=== PATIENT | female | born 1990 | race Caucasian/White ===

== ENCOUNTER → 2016-05-21 | Outpatient (CLI) | payer BC ==
[~2016-05-21] MED LIST: VALA1TAB PO
== END | disposition home or self-care (01) ==
LOC: C.LAB1850 07:25
PROVIDERS: ATTEND Obstetrics & Gynecology
DX: O20.0 Threatened abortion (principal)

== ENCOUNTER → 2016-05-28 | Outpatient (CLI) | payer BC | END | disposition home or self-care (01) | LOC: C.LAB 16:14 | PROVIDERS: ATTEND Obstetrics & Gynecology | DX: O03.4 Incomplete spontaneous abortion without complication (principal); Z3A.00 Weeks of gestation of pregnancy not specified ==

== ENCOUNTER → 2016-06-12 | Outpatient (CLI) | payer BC | END | disposition home or self-care (01) | LOC: C.LAB 07:44 | PROVIDERS: ATTEND Obstetrics & Gynecology | DX: O03.4 Incomplete spontaneous abortion without complication (principal) ==

== ENCOUNTER → 2016-09-13 | Outpatient (CLI) | payer BC ==
[2016-09-13 09:49] LABS: HEMATOCRIT 40.3 % (37-47); MEAN CELL VOLUME 90.4 fL (80-100); MEAN CORPUSCULAR HEMOGLOBIN 28.9 pg (25-34); MEAN PLATELET VOLUME 9.8 fL (7.4-10.4); PLATELET COUNT 348 K/uL (130-400); RED BLOOD COUNT 4.46 M/uL (4.2-5.4); WHITE BLOOD COUNT 6.68 K/uL (4.8-10.8)
[2016-09-13 10:00] LABS: ALT/SGPT 23 U/L (12-78); BLOOD UREA NITROGEN 10 mg/dl (7-18); BUN/CREATININE RATIO 12.5 (10-20); CARBON DIOXIDE 28 mmol/L (21-32); CHLORIDE 107 mmol/L (98-107); CHOLESTEROL 171 mg/dl (0-200); GLUCOSE 85 mg/dl (70-99); POTASSIUM 3.9 mmol/L (3.5-5.1); SODIUM 141 mmol/L (136-145); TRIGLYCERIDES 124 mg/dl (0-150); VERY LOW DENSITY LIPOPROT CALC 25 mg/dl
[2016-09-13 10:03] LABS: ALB/GLOB RATIO 1.3 (0.9-2); ALKALINE PHOSPHATASE 49 U/L (45-117); AST/SGOT 14 U/L (15-37); HDL CHOLESTEROL 57 mg/dl; LDL CHOLESTEROL CALCULATED 89 mg/dl
[2016-09-13 10:05] LABS: CALCIUM 9.4 mg/dl (8.5-10.1)
== END | disposition home or self-care (01) ==
LOC: C.LAB1850 08:20
PROVIDERS: ATTEND Internal Medicine
DX: Z00.00 Encounter for general adult medical examination without abnormal findings (principal); Z86.2 Personal history of diseases of the blood and blood-forming organs and certain disorders involving the immune mechanism

== ENCOUNTER → 2016-11-05 | Outpatient (CLI) | payer BC ==
[2016-11-05 14:45] LABS: BASO % 0.3 %; BASO ABS # 0.03 K/uL (0-0.2); COMPLETE YES; EOS % 0.8 %; HEMATOCRIT 37.8 % (37-47); IG% 0.3 %; LYMPH % 18.6 %; LYMPH ABS # 1.63 K/uL (1.2-3.4); MEAN CELL VOLUME 89.4 fL (80-100); MEAN CORPUSCULAR HEMOGLOBIN 29.1 pg (25-34); MEAN CORPUSCULAR HGB CONC 32.5 g/dl (32-36); MEAN PLATELET VOLUME 9.5 fL (7.4-10.4); MONO % 6.8 %; NEUT % 73.2 %; PLATELET COUNT 443 K/uL (130-400); RED BLOOD COUNT 4.23 M/uL (4.2-5.4); WHITE BLOOD COUNT 8.76 K/uL (4.8-10.8)
[2016-11-05 16:34] LABS: URINE APPEARANCE CLEAR (CLEAR); URINE BILIRUBIN NEG (NEG); URINE COLOR YELLOW; URINE EPITHELIAL CELL AUTO >30 /lpf (0-5); URINE NITRITE NEG (NEG); URINE PH 7.5 (4.5-7.5); URINE SPECIFIC GRAVITY 1.016 (1.000-1.030); UROBILINOGEN NEG (NEG)
[2016-11-05 16:36] LABS: MANUAL MICROSCOPIC REQUIRED? NO; REVIEW REQ? NO
[2016-11-08 02:41] LABS: CHLAMYDIA TRACH RNA*** NOT DETECTED (NOT DETECTED); GC (NEIS GONORRHOEAE)RNA** NOT DETECTED (NOT DETECTED)
== END | disposition home or self-care (01) ==
LOC: C.LAB1850 12:38
PROVIDERS: ATTEND Obstetrics & Gynecology
DX: Z36 Encounter for antenatal screening of mother (principal); O09.299 Supervision of pregnancy with other poor reproductive or obstetric history, unspecified trimester; Z3A.00 Weeks of gestation of pregnancy not specified

== ENCOUNTER → 2016-12-24 | Outpatient (CLI) | payer BC ==
[2016-12-24 19:30] LABS: GTGD 50 Grams
== END | disposition home or self-care (01) ==
LOC: C.LAB1850 12:33
PROVIDERS: ATTEND Obstetrics & Gynecology
DX: Z34.82 Encounter for supervision of other normal pregnancy, second trimester (principal)

== ENCOUNTER → 2017-03-12 | Outpatient (CLI) | payer BC ==
[2017-03-12 14:50] LABS: HEMATOCRIT 33.7 % (37-47)
[2017-03-12 15:24] LABS: GTGD 50 Grams
[2017-03-12 16:22] LABS: MANUAL MICROSCOPIC REQUIRED? NO; REVIEW REQ? YES; URINE APPEARANCE CLEAR (CLEAR); URINE BILIRUBIN NEG (NEG); URINE COLOR YELLOW; URINE EPITHELIAL CELL AUTO >30 /lpf (0-5); URINE NITRITE NEG (NEG); URINE PH 6.5 (4.5-7.5); UROBILINOGEN NEG (NEG)
== END | disposition home or self-care (01) ==
LOC: C.LAB1850 13:50
PROVIDERS: ATTEND Obstetrics & Gynecology
DX: Z34.00 Encounter for supervision of normal first pregnancy, unspecified trimester (principal)

== ENCOUNTER → 2017-03-27 | Outpatient (CLI) | payer BC ==
[2017-04-02 03:41] LABS: CYTOMEGALOVIRUS IGG AB <0.60 U/ML
== END | disposition home or self-care (01) ==
LOC: C.LAB1850 12:02
PROVIDERS: ATTEND Obstetrics & Gynecology
DX: Z34.03 Encounter for supervision of normal first pregnancy, third trimester (principal); Z20.828 Contact with and (suspected) exposure to other viral communicable diseases; Z3A.00 Weeks of gestation of pregnancy not specified

== ENCOUNTER → 2017-04-25 | Outpatient (CLI) | payer BC | END | disposition home or self-care (01) | LOC: C.LAB1850 13:28 | PROVIDERS: ATTEND Obstetrics & Gynecology | DX: Z20.828 Contact with and (suspected) exposure to other viral communicable diseases (principal) ==

== ENCOUNTER → 2017-05-09 | Outpatient (CLI) | payer BC | END | disposition home or self-care (01) | LOC: C.LABSPEC 14:37 | PROVIDERS: ATTEND Obstetrics & Gynecology | DX: Z34.03 Encounter for supervision of normal first pregnancy, third trimester (principal) ==

== ENCOUNTER 2017-06-06 02:59 | Inpatient (IN) | payer BC, OTHER ==
[~2017-06-06] VITALS: Ht 162.6 cm; Wt 108.9 kg
[2017-06-13] MEDS ORDERED: LACTATED RINGER'S 1000ML 1,000 ML IV PRN (07:43)
[2017-06-13] MEDS ORDERED: LACTATED RINGER'S 1000ML 500 ML IV PRN ×2 (07:43→13:22)
[2017-06-13] MEDS ORDERED: OXYTOCIN 30 UNITS/500ML NSS IV PRN (07:45)
[2017-06-13 08:19] LABS: HEMATOCRIT 35.8 % (37-47); HEMOGLOBIN 12.2 g/dL (12.0-16.0); MEAN CELL VOLUME 90.4 fL (80-100); MEAN CORPUSCULAR HEMOGLOBIN 30.8 pg (25-34); MEAN CORPUSCULAR HGB CONC 34.1 g/dl (32-36); MEAN PLATELET VOLUME 9.9 fL (7.4-10.4); PLATELET COUNT 280 K/uL (130-400); RED CELL DISTRIBUTION WIDTH CV 13.7 % (11.5-14.5); WHITE BLOOD COUNT 12.54 K/uL (4.8-10.8)
[2017-06-13] MEDS: LACTATED RINGER'S 1000ML 1,000 ML IV SCH ×3 (08:19→16:38)
[2017-06-13] MEDS ORDERED: RANI150T3 PO (08:48)
[2017-06-13] MEDS ORDERED: PRENTAB26 PO (08:48)
[2017-06-13] MEDS ORDERED: DOCU-94 PO (08:48)
[2017-06-13 08:52] VITALS: Ht 162.6 cm; Wt 108.9 kg
[2017-06-13] MEDS ORDERED: BUPIVACAINE 0.25% 30 ML VIAL ONE (12:05)
[2017-06-13] MEDS ORDERED: EpHEDrine SULFATE INJ 50 MG/ML AMP ONE (12:05)
[2017-06-13] MEDS ORDERED: FENTANYL 2MCG/ML ROPIV 1.25MG/ML 100ML BAG EPI ONE (12:07)
[2017-06-13] MEDS ORDERED: FENTANYL CITRATE INJ 50 MCG/1 ML 2 ML VIAL ONE ×2 (12:07→21:54)
[2017-06-13] MEDS ORDERED: NALOXONE HCL INJ 1 MG in SODIUM CHLORIDE 0.9% 1000ML 1,000 ML IV PRN (13:22)
[2017-06-13] MEDS ORDERED: ONDANSETRON INJ 2 MG/ML 2 ML VIAL IV PRN ×2 (13:30→21:15)
[2017-06-13] MEDS ORDERED: NALOXONE HCL INJ 0.4 MG/1 ML VIAL/CARP IV PRN (13:30)
[2017-06-13] MEDS ORDERED: DiphenhydrAMINE HCL 50 MG/ML VIAL IV PRN (13:30)
[2017-06-13] MEDS ORDERED: EpHEDrine SULFATE INJ 50 MG/ML AMP IV PRN ×2 (13:30→21:15)
[2017-06-13] MEDS ORDERED: FENTANYL 2MCG/ML ROPIV 1.25MG/ML 100ML BAG EPI PRN (13:30)
[2017-06-13] MEDS ORDERED: NALBUPHINE HCL INJ 10 MG/ML AMP IV PRN (13:30)
--- NOTE | 2017-06-13 19:52 | HISTORY & PHYSICAL EXAMINATION ---
DATE OF ADMISSION: 06/13/2017 HISTORY OF PRESENT ILLNESS: Evy is 41 weeks and she was induced on 06/13/2017. This was for postdates. She was 3 cm. Pitocin was started. As well as she was group B strep negative thus did not require antibiotics. She did proceed to have artificial rupture of membranes and then an epidural. She did reach 5 cm and then labor has stopped at 5 cm for over 3-1/2 hours. An IUPC has been placed and contractions are excellent with monitored video units ranging from 220-300/10 minute. HISTORY: Uncomplicated, this is her first baby. PAST MEDICAL HISTORY: She is healthy. PAST SURGICAL HISTORY: No major surgeries. SOCIAL HISTORY: She is a nonsmoker, nondrinker, . FAMILY HISTORY: Noncontributory. REVIEW OF SYSTEMS: Negative. PHYSICAL EXAMINATION: VITAL SIGNS: Stable. She is afebrile. CHEST: Clear. CARDIOVASCULAR: Normal rate and rhythm. No audible murmur. ABDOMEN: Gravid. heart rate tones category 1. CERVIX: A 5 cm. Some molding palpated, -1 station. IMPRESSION AND PLAN: Discussed with the patient if no progress is made in the next hour, we would recommend section. Discussed risks including but not limited to the risks of bleeding, infection, injury to bowel, bladder, ureter, vessels, deep vein thrombosis and pulmonary embolus. Discussed somewhat increased infection rates with people having sections in labor with ruptured membranes. Again, we will make this final call in the next hour. CHERYLE
[2017-06-13] MEDS ORDERED: CEFAZOLIN IV 3,000 MG in SYRINGE 0 ML IV SCH (21:00)
[2017-06-13] MEDS ORDERED: CITRIC ACID/SODIUM CITRATE 15 ML UDC PO ONE (21:00)
[2017-06-13] MEDS ORDERED: ONDANSETRON INJ 2 MG/ML 2 ML VIAL ONE (21:06)
[2017-06-13] MEDS ORDERED: OXYTOCIN INJ 10 UNITS/ML VIAL ONE (21:06)
[2017-06-13] MEDS ORDERED: LIDOCAINE/EPINEPHRINE 2% 1:200,000 20 ML SDV ONE (21:06)
[2017-06-13] MEDS ORDERED: FENTANYL CITRATE INJ 50 MCG/1 ML 2 ML VIAL IV PRN (21:15)
[2017-06-13] MEDS ORDERED: ATROPINE SULFATE 0.1 MG/ML 5ML SYR IV PRN (21:15)
[2017-06-13] MEDS ORDERED: KETAMINE HCL INJ 50 MG/ML 10 ML VIAL ONE (21:39)
[2017-06-13] MEDS ORDERED: MoRPHine SULFATE PF 1 MG/ML 10 ML AMP/VIAL ONE (21:54)
[2017-06-13] MEDS ORDERED: LACTATED RINGER'S 1000ML 1,000 ML IV SCH (22:16)
--- NOTE | 2017-06-13 22:19 | [facility] Post Operative Brief Note ---
Immediate Operative Summary Operative Date Jun 13, 2017. Pre-Operative Diagnosis 41 week Failure to progress Post-Operative Diagnosis Same Procedure(s) Performed Primary Section Surgeon Ananya Instrument Specialist Surgeon(s) Ted Cano, medical student Estimated Blood Loss 600ml Findings Consistent with Post-Op Diagnosis Specimens 1. Placenta 2. Cord blood Drains Mcgregor Anesthesia Type L&D Only EPID Exist Complication(s) none Disposition Disposition: L&D
[2017-06-13] MEDS ORDERED: BENZOCAINE 20% AER SPR 82.5 GM CAN EXT PRN (22:30)
[2017-06-13] MEDS ORDERED: LANOLIN OINT EXT PRN (22:30)
[2017-06-13] MEDS ORDERED: HYDROCORTISONE ACETATE 25 MG SUPP PR PRN (22:30)
[2017-06-13] MEDS ORDERED: SUPERCREAM 0.870 % 15GM JAR EXT PRN (22:30)
[2017-06-13] MEDS ORDERED: SENNA 8.6 MG TAB PO PRN (22:30)
[2017-06-13] MEDS ORDERED: PROMETHAZINE HCL INJ 25 MG in SODIUM CHLORIDE 0.9% 50ML 50 ML IV PRN (22:30)
[2017-06-13] MEDS ORDERED: MAGNESIUM HYDROXIDE SUSP 30 ML UDC PO PRN (22:30)
--- NOTE | 2017-06-13 22:36 | Anesthesiology Progress Note ---
Anesthesia Post Op Note Date & Time Jun 13, 2017 at 22:35 Vital Signs Pain Intensity: 0.0 Notes Mental Status: alert / awake / arousable, participated in evaluation Pt Amnestic to Procedure: Yes Nausea / Vomiting: adequately controlled Pain: adequately controlled Airway Patency, RR, SpO2: stable & adequate BP & HR: stable & adequate Hydration State: stable & adequate Anesthetic Complications: no major complications apparent
[2017-06-13] MEDS ORDERED: CONTINUE MEDICATION ONE (22:45)
[2017-06-13] MEDS ORDERED: MEPERIDINE HCL 25 MG/ML CARP IV PRN (22:45)
[2017-06-13] MEDS ORDERED: NO NARCOTICS OR SEDATIVES SCH (22:45)
[2017-06-13] MEDS ORDERED: DC INTRASPINAL MORPHINE PRN (22:45)
[2017-06-13] MEDS ORDERED: MoRPHine SULFATE PF 1 MG/ML 10 ML AMP/VIAL EPI PRN (22:45)
[2017-06-13] MEDS ORDERED: OXYTOCIN INJ 20 UNITS in LACTATED RINGER'S 1000ML 1,000 ML IV SCH (23:00)
[2017-06-13] MEDS: KETOROLAC TROMETHAMINE 30 MG/ML VIAL IV. PRN (23:07)
--- NOTE | 2017-06-13 23:17 | OPERATIVE REPORT ---
DATE OF OPERATION: 06/13/2017 PREOPERATIVE DIAGNOSIS: 41 weeks , failure to progress in labor. POSTOPERATIVE DIAGNOSES: Same. PROCEDURE: Low segment transverse primary section. SURGEON: Robb Casanova MD. TUNNELLER: Ted Cano, medical student. ESTIMATED BLOOD LOSS: 600 mL. FINDINGS: Consistent with postoperative diagnosis. SPECIMENS: Placenta, cord blood and cord gases. DRAINS: Mcgregor catheter. ANESTHETIC: Epidural. COMPLICATIONS: None. DISPOSITION: Labor and delivery. DESCRIPTION OF PROCEDURE: Evy had her epidural increased to allow for section. Mcgregor catheter was placed by nursing and she was prepped and draped in supine position with a leftward tilt. Pickups with teeth were used to check adequacy of anesthesia. Initially it was not adequate, but after waiting approximately 5 minutes and retesting this, the situation improved. Pfannenstiel incision made with scalpel, dissecting down through subcutaneous fat to the fascia in the midline. Curved Mayos were then used to extend the fascia laterally and then the fascia superiorly and inferiorly away from the rectus muscles. Rectus muscle split. Peritoneal cavity entered in a superior location and then peritoneal cavity opening enlarged to allow exposure. Bladder retractor placed and then Metzenbaums used to dissect away the bladder flap. Uterus was then incised with the scalpel and then entry was done bluntly with the dry mill operator's finger and then opening extended in the usual fashion with the dry mill operator's fingers. Gentle flexion of the baby's head and then pressure on the abdomen, we delivered the head. Mouth and then nares were suctioned. There was a loose nuchal cord. Then baby was delivered by gentle traction. The baby was then transferred to pediatrics. The baby did require resuscitation. Note, IV Ancef was given preoperatively. IV Pitocin was started at the time of once the baby was delivered. Placenta was removed. We exteriorized the uterus and ensured all the placental material removed from the uterus and then uterus closed in the usual fashion, a running 0 Monocryl locked and a second reinforcing 0 Monocryl nonlocked. After generous irrigation and suction of the cul-de-sac and bladder flap regions, hemostasis was excellent. Uterus was placed back in the peritoneal cavity and hemostasis remained excellent. We inspected the rectus muscles. There was no active bleeding. Fascia closed with 0 Vicryl, subcutaneous fat irrigated and closed with 3-0 Vicryl, skin closed with 4-0 subcuticular Monocryl and Steri-Strips. Urine was clean at the end of the procedure, sponge and instrument counts correct. I attest to the content of the Intraoperative Record and any orders documented therein. Any exceptions are noted below. MTDD
[2017-06-14] VITALS (17 sets, daily range): BP systolic 113–137; BP diastolic 60–83; PULSE 80–101; TEMP 36.4–36.8; O2SAT 93–100
--- NOTE | 2017-06-14 06:52 | Progress Note ---
Subjective Jun 14, 2017. Subjective conversation w/ patient, physical exam, lab review Ambulation: ambulating normally Passing Gas: No Diet Tolerance: Regular Diet Lochia: Moderate Objective Vital Signs Date Time Temp Pulse Resp B/P (MAP) Pulse Ox O2 Delivery O2 Flow Rate FiO2 06/14/17 06:15 18 94 06/14/17 05:15 16 93 06/14/17 04:15 18 94 06/14/17 04:15 36.7 88 20 113/69 (84) 94 Room Air 06/14/17 03:15 18 94 06/14/17 02:15 36.5 101 20 137/79 (98) 100 Room Air 06/14/17 02:15 20 100 06/14/17 01:15 94 Room Air 06/14/17 01:15 94 06/14/17 01:15 20 93 06/14/17 01:15 36.4 87 20 113/71 (85) 93 Room Air Physical Exam General Appearance: WELL-APPEARING Respiratory/Chest: lungs clear Abdomen: non tender Fundus: Firm Incision Description: Clean, Dry & Intact Extremities: no calf tenderness Laboratory Results Last 24 Hours Test 06/13/17 08:08 06/14/17 06:42 White Blood Count 12.54 K/uL Red Blood Count 3.96 M/uL Hemoglobin 12.2 g/dL Hematocrit 35.8 % Mean Corpuscular Volume 90.4 fL Mean Corpuscular Hemoglobin 30.8 pg Mean Corpuscular Hemoglobin Concent 34.1 g/dl RDW Standard Deviation 45.0 fL RDW Coefficient of Variation 13.7 % Platelet Count 280 K/uL Mean Platelet Volume 9.9 fL Assessment and Plan Post-Op Day#: 0 Continue Routine Care: Patient is doing well minimal bleeding seen as well controlled her baby is in [place] she wishes to go home she is willing to stay today and consider going home tomorrow morning
[2017-06-14 07:56] LABS: BASO % 0.1 %; BASO ABS # 0.01 K/uL (0-0.2); EOS % 0.1 %; EOS ABS # 0.01 K/uL (0-0.5); HEMATOCRIT 30.7 % (37-47); HEMOGLOBIN 10.5 g/dL (12.0-16.0); IG# 0.04 K/uL (0.00-0.02); LYMPH % 9.6 %; MEAN CELL VOLUME 91.1 fL (80-100); MEAN CORPUSCULAR HEMOGLOBIN 31.2 pg (25-34); MEAN CORPUSCULAR HGB CONC 34.2 g/dl (32-36); MEAN PLATELET VOLUME 10.1 fL (7.4-10.4); MONO ABS # 0.75 K/uL (0.11-0.59); NEUT % 83.9 %; NEUT ABS # 10.51 K/uL (1.4-6.5); PLATELET COUNT 207 K/uL (130-400); RED CELL DISTRIBUTION WIDTH CV 13.7 % (11.5-14.5); RED CELL DISTRIBUTION WIDTH SD 45.2 fL (36.4-46.3); WHITE BLOOD COUNT 12.52 K/uL (4.8-10.8)
[2017-06-14] MEDS: SIMETHICONE 80 MG CHEW PO SCH ×4 (08:13→20:07)
[2017-06-14] MEDS: PRENATAL VITAMIN TAB PO SCH (08:13)
[2017-06-14] MEDS: DOCUSATE SODIUM 100 MG CAP PO SCH ×2 (08:13→20:04)
[2017-06-14] MEDS: KETOROLAC TROMETHAMINE 30 MG/ML VIAL IV. PRN ×2 (08:19→14:33)
[2017-06-14] MEDS ORDERED: DiphenhydrAMINE HCL 50 MG/ML VIAL IV PRN (15:45)
[2017-06-14] MEDS ORDERED: MEPERIDINE HCL 50 MG/ML CARP IV PRN ×2 (15:45)
[2017-06-14] MEDS ORDERED: ZOLPIDEM TARTRATE 5 MG TAB PO PRN (15:45)
[2017-06-14] MEDS ORDERED: ONDANSETRON INJ 2 MG/ML 2 ML VIAL IV PRN (15:45)
[2017-06-14] MEDS ORDERED: KETOROLAC TROMETHAMINE 30 MG/ML VIAL IV. PRN (15:45)
[2017-06-14] MEDS: OXYCODONE/ACETAMINOPHEN 5-325 TAB PO PRN ×3 (16:13→23:47)
--- NOTE | 2017-06-14 17:11 | Discharge Instructions ---
Discharge Instructions Date of Service Jun 14, 2017. Admission Reason for Admission: Induction Discharge Discharge Diagnosis / Problem: delivery Discharge Goals Goal(s): Routine recovery after Medications Continue Dispensed Medications: lansinoh Activity Recommendations Activity Limitations: per Instructions/Follow-up section . Instructions / Follow-Up Instructions / Follow-Up ACTIVITY RECOMMENDATIONS: * Gradual return to full activity over the next 2-3 weeks. * No lifting - nothing heavier than baby over the next 2-3 weeks. * Do not engage in vigorous exercise, sexual activity or sports until cleared by your physician. * Do not drive or operate any motorized equipment until cleared by your physician. * You may shower/bathe daily. MEDICATIONS: For discomfort or pain, you may use Acetaminophen (Tylenol), Ibuprofen (Advil), or Naproxen (Aleve) following the package directions. For constipation you may use Colace following the package directions. BREAST CARE: If you are not breast feeding: * Wear a supportive bra 24 hours a day for one to two weeks. * Avoid stimulating your breasts and nipples as much as possible during the first few weeks after delivery. * When taking a shower, have the warm water hit your back, not breasts. * When your breasts feel full, apply ice packs. Usually three to four times a day helps ease the discomfort. * Take a mild pain medication (Tylenol / Motrin) when you are uncomfortable. If breast feeding: * Use breast milk to lubricate nipples. Lansinoh cream may be used for sore nipples. You do not need to remove cream prior to breast feeding. If using a different brand of cream, check the label for directions regarding removal of cream prior to nursing. * Wear a supportive bra. * If having problems with breasts or breast feeding, call a men's custom hair piece consultant or your health care provider. SPECIAL CARE INSTRUCTIONS: When you are discharged from the hospital, it is important for you to follow the instructions listed below: * During the first week at home, you should be able to care for yourself and your baby. In addition, the usual light household activities are encouraged. * Limit your activities to the way you feel. Do not try to clean the house or move furniture. Be sensible. * If you actively engage in sports and have done so up until the time of your delivery, you may resume these activities as soon as you feel able. This may take up to one month or even longer. Use good judgment. * Continue to take your vitamins for at least six weeks after the of your baby. * Your diet need not be limited unless you were on a special diet before your delivery. Breast-feeding mothers need around 2500 calories per day and at least 64-80 ounces of fluid per day (8 to 10 glasses). * You should eat foods from the four major food groups. Crash diets or fad diets are to be avoided. Eating lean meats, fresh fruits and vegetables, low-fat dairy products, high fiber foods and a regular exercise program, will help you get back to your pre- weight without putting your health at risk. * Constipation is sometimes a problem after delivery. Take a mild laxative as needed. If breast feeding, Milk of Magnesia is acceptable to use. You may use a suppository or Fleets enema. * A daily shower or tub bath is suggested. Wash incision daily with warm soapy water and pat dry. It doesn't need to be covered unless drainage is present. * A bloody vaginal discharge will usually continue until around four weeks . A small amount of bleeding may continue for as long as six weeks. Vaginal discharge changes from the bright red bleeding after delivery to pink then brownish and finally yellowish-pink before becoming white and disappearing. * Bleeding may increase with activity. Your first period may come in 4-8 weeks. If you are breast feeding, your period may be delayed even longer. * [place] (sex) can begin whenever both you and your partner feel comfortable and do not have any form of genital infection. It is recommended that you wait at least six weeks for internal and external healing to occur. If you have questions, please talk to your health care practitioner. A condom should be used to prevent infection and . * Foreplay, gentle intercourse and lubrication is very important the first several times to prevent pain. A water-based lubricant such as K-Y jelly or Astroglide may be used. * If you have RH negative blood and your baby is RH positive, you will receive RHOGAM by injection prior to discharge. The nurse will give you a card to keep with you that has the date and place that you received RHOGAM after delivery. * During your care, you had a Rubella screen done to check for the presence of rubella antibodies in your blood. If your test was negative, you will receive a Rubella vaccine prior to discharge. This vaccine may cause a fever, soreness at the injection site and flu-like symptoms. If these symptoms persist, notify your health care practitioner. is not advised for one month after a Rubella vaccine. * Verbalizes understanding of car seat law as reviewed with patient nursing. * Car Seat hand-out given and reviewed with patient by nursing. * Shaken baby information reviewed with patient by nursing. Call you doctor if: * Heavy bleeding (saturating several pads an hour) or passing clots the size of your fist. * A fever >101 degrees F (38.3 degrees C) on two occasions four hours apart and /or chills. * Unusual pain in the pelvic or vaginal areas. * Call the doctor for any increased redness, drainage or swelling around the incision and any pain unrelieved by prescribed pain medication. * "Baby Blues" lasting longer than two weeks. If you have any questions or concerns, call your health care practitioner at . FOLLOW UP VISIT: * Please call the office at to schedule a 6 week examination. It is important you keep this appointment. It is important for you to make arrangements for either yearly or twice yearly check-ups thereafter. Current Hospital Diet Patient's current hospital diet: Regular OB Diet Discharge Diet Recommended Diet: Regular Diet Procedures Procedures Performed: Primary Section Pending Studies Studies pending at discharge: no Medical Emergencies . Who to Call and When: Medical Emergencies: If at any time you feel your situation is an emergency, please call 911 immediately. . Non-Emergent Contact Non-Emergency issues call your: Primary Care Provider . . "Provider Documentation" section prepared by Marah Siddiqui. . VTE Core Measure Inpt VTE Proph given/why not?: SCD's
[2017-06-14] MEDS ORDERED: BISACODYL 5 MG TABEC ONE (19:56)
[2017-06-14] MEDS: IBUPROFEN 600 MG TAB PO PRN ×2 (20:04→23:48)
[2017-06-14] MEDS ORDERED: CEFAZOLIN IV 3,000 MG in SYRINGE 0 ML IV SCH (21:00)
[2017-06-14] MEDS ORDERED: BISACODYL 5 MG TABEC PO ONE (22:00)
[2017-06-15] MEDS: OXYCODONE/ACETAMINOPHEN 5-325 TAB PO PRN ×2 (03:14→06:55)
[2017-06-15] MEDS: IBUPROFEN 600 MG TAB PO PRN ×2 (03:14→06:56)
[2017-06-15 06:05] LABS: HEMATOCRIT 31.9 % (37-47); HEMOGLOBIN 10.4 g/dL (12.0-16.0)
[2017-06-15 07:45] VITALS: BP 113/72; PULSE 75; TEMP 36.6
--- NOTE | 2017-06-15 07:48 | Progress Note ---
Subjective Jun 15, 2017. Subjective conversation w/ patient, physical exam Ambulation: ambulating normally Voiding: no voiding problems Passing Gas: Yes Diet Tolerance: Regular Diet Lochia: Moderate Feeding Type: Bottle Feeding (NICU baby) Review of Systems Constitutional: No fever, No chills Respiratory: No cough Cardiac: No chest pain Abdomen: No nausea, No vomiting Objective Vital Signs Date Time Temp Pulse Resp B/P (MAP) Pulse Ox O2 Delivery O2 Flow Rate FiO2 06/14/17 23:55 99 Room Air 06/14/17 23:55 36.6 81 16 129/83 (98) 99 Room Air 06/14/17 20:00 36.7 93 18 118/78 (91) 96 Room Air 06/14/17 20:00 96 Room Air 06/14/17 16:20 36.8 80 16 113/74 (87) 99 Room Air 06/14/17 16:20 99 Room Air 06/14/17 15:15 20 06/14/17 14:15 18 98 06/14/17 13:30 18 96 06/14/17 12:30 18 100 06/14/17 12:30 36.8 87 18 119/71 (87) 100 Room Air 06/14/17 11:15 18 98 06/14/17 10:15 18 96 06/14/17 09:15 18 100 06/14/17 08:30 18 96 06/14/17 08:30 96 Room Air 06/14/17 08:30 36.6 86 18 120/60 (80) 96 Room Air Physical Exam General Appearance: WELL-APPEARING, NO APPARENT DISTRESS Respiratory/Chest: no respiratory distress, no accessory muscle use Cardiovascular: no edema Abdomen: non tender, soft Fundus: Firm Incision Description: Clean, Dry & Intact Extremities: no calf tenderness Laboratory Results Last 24 Hours Test 06/15/17 05:51 Hemoglobin 10.4 g/dL Hematocrit 31.9 % Assessment and Plan Post-Op Day#: 1 Continue Routine Care: Desires D/C to get to NICU at [facility]. Instructions reviewed. Some concern about PTSD / emotional distress following delivery. Have set up a one week f/u call to ensure patient gets early intervention if mood disorder, PTSD, etc.
[2017-06-15] MEDS ORDERED: OXYC-57 PO (07:58)
[2017-06-15 08:15] VITALS: BP_DIAS 72; PULSE 75; TEMP 36.6
[2017-06-15] MEDS: DOCUSATE SODIUM 100 MG CAP PO SCH (09:07)
[2017-06-15] MEDS: SIMETHICONE 80 MG CHEW PO SCH (09:07)
[2017-06-15] MEDS: PRENATAL VITAMIN TAB PO SCH (09:07)
[2017-06-15] MEDS ORDERED: BISACODYL 10 MG SUPP PR PRN (22:45)
== END 2017-06-15 09:20 | disposition home or self-care (01) | DRG 766 ==
LOC: C.LD 06-13 07:29 → C.OBG 06-14 01:45
PROVIDERS: ADMIT Obstetrics & Gynecology; ATTEND Obstetrics & Gynecology
PROC: 3E033VJ Introduction of Other Hormone into Peripheral Vein, Percutaneous Approach (ICD-10-PCS; principal; 2017-06-13 21:10)
PROC: 10D00Z1 Extraction of Products of Conception, Low, Open Approach (ICD-10-PCS; principal; 2017-06-13 21:10)
DX: O48.0 Post-term pregnancy (principal); O32.4XX0 Maternal care for high head at term, not applicable or unspecified; Z37.0 Single live birth; Z3A.41 41 weeks gestation of pregnancy; O90.6 Postpartum mood disturbance; O69.81X0 Labor and delivery complicated by cord around neck, without compression, not applicable or unspecified

== ENCOUNTER 2017-06-12 19:58 | Outpatient (CLI) | payer OTHER ==
[~2017-06-12] VITALS: Ht 162.6 cm; Wt 108.5 kg
[2017-06-12 21:10] VITALS: Ht 162.6 cm; Wt 108.5 kg
[2017-06-13] MEDS ORDERED: RANI150T3 PO (08:48)
[2017-06-13] MEDS ORDERED: PRENTAB26 PO (08:48)
[2017-06-13] MEDS ORDERED: DOCU-94 PO (08:48)
--- NOTE | 2017-06-13 12:58 | EDITING REQUIRED CODING QUERY ---
DIAGNOSIS NEEDED To promote full compliance with coding requirements relating to patient care, physician participation is requested in all cases of sailor uncertainty. Please assist us with the question(s) below: Coding Question: The patient received care in labor and delivery on 06/12/17 as noted within the record. Please document the diagnosis that is being addressed by the medication/treatment. Provider Response: DIAGNOSIS: Postdates, unfavorable cervix WEEKS GESTATION: 40 6/7 Please also clarify if a beebe bulb was inserted on 06/12/17: ( X ) Beeeb Bulb was not inserted ( ) Beebe bulb was inserted DESCRIPTION: ( X) Other, please clarify: Upon exam, cervix was more favorable Thank you for your assistance, Evy Swift - Lease Examiner
== END 2017-06-12 21:20 | disposition home or self-care (01) ==
LOC: C.OPB 19:58 → C.LD 19:58 → C.OPB 21:20
PROVIDERS: ATTEND Obstetrics & Gynecology
DX: O48.0 Post-term pregnancy (principal); O34.43 Maternal care for other abnormalities of cervix, third trimester; Z3A.40 40 weeks gestation of pregnancy

== ENCOUNTER → 2017-09-05 | Outpatient (CLI) | payer OTHER ==
[~2017-09-05] MED LIST changes: +DOCU-94 PO; +OXYC-57 PO; +PRENTAB26 PO; +RANI150T3 PO
== END | disposition home or self-care (01) ==
LOC: C.LAB1850 07:28
PROVIDERS: ATTEND Physician Assistant
DX: Z00.00 Encounter for general adult medical examination without abnormal findings (principal)

== ENCOUNTER 2019-08-17 05:34 | Inpatient (IN) ==
[2019-08-17 05:55] LABS: Basophils # (auto) 0.02 K/uL (0-0.2); Basophils % (auto) 0.2 %; Eosinophils # (auto) 0.05 K/uL (0-0.5); Eosinophils % (auto) 0.5 %; Hematocrit (blood only) 36.3 % (37-47); Hemoglobin 12.1 g/dL (12.0-16.0); Immature Granulocytes # (auto) 0.04 K/uL (0.00-0.02); Immature Granulocytes % (auto) 0.4 %; Lymphocytes # (auto) 2.18 K/uL (1.2-3.4); Lymphocytes % (auto) 21.6 %; Mean Corpuscular Hemoglobin 30.3 pg (25-34); Mean Corpuscular Volume 90.8 fL (80-100); Mean Platelet Volume 9.9 fL (7.4-10.4); Monocytes # (auto) 0.83 K/uL (0.11-0.59); Monocytes % (auto) 8.2 %; Neutrophils # (auto) 6.95 K/uL (1.4-6.5); Neutrophils % (auto) 69.1 %; Platelet Count 279 K/uL (130-400); RDW Coefficient of Variation 13.3 % (11.5-14.5); RDW Standard Deviation 43.8 fL (36.4-46.3); White Blood Count 10.07 K/uL (4.8-10.8)
[2019-08-17] MEDS ORDERED: CITRIC ACID/SODIUM CITRATE 15 ML UDC PO SCH (06:00)
[2019-08-17] MEDS ORDERED: CEFAZOLIN 3000MG 72.5 ML IV SCH (06:00)
[2019-08-17 06:03] LABS: Mean Corpuscular Hgb Conc 33.3 g/dL (32-36)
[2019-08-17] MEDS: LACTATED RINGER'S 1,000 ML IV SCH ×2 (06:04→06:56)
--- NOTE | 2019-08-17 06:42 | History & Physical Report ---
Date of Service August 17, 2019 Assessment & Plan (1) Previous delivery affecting : Repeat section. The patient was counseled to the nature of the procedure including alternatives such as labor. Risks were discussed including bleeding infection injury to bowel bladder ureter vessels and even baby. The risks of internal organ injury were discussed as being higher with prior sections. Deep Vein Thrombosis, pulmonary embolus and breakdown of the incision discussed. Deep vein thrombosis pulmonary embolus hernia and failure of the incision to heal were discussed Patient verbalized understanding of this and was given ample time to ask questions Does not wish tubal History of Present Illness Primary Care Provider: Liya Valenzuela PA-C Previous section and wishes repeat. Currently 39+ weeks GA and uncomplicated Allergies Allergy/AdvReac Type Severity Reaction Status Date / Time No Known Allergies Allergy Verified 08/11/19 08:37 Home Medications Home Medications Medication Instructions Recorded Confirmed Type PNV cmb#95-ferrous fumarate-FA 1 tab PO QAM 07/20/19 08/17/19 History [] valacyclovir 1,000 mg PO DAILY PRN 07/20/19 08/17/19 History Patient History Medical History Herpes simplex Surgical History History of (Acute) FT, 05/2017 [facility] [place] History of D&C 2018 History of tooth extraction Hx of Family History Father Diabetes Mother FHx: kidney cancer Thyroid disease Gestational diabetes Social History Preferred Language: Pashto Communication Ability: Effective Global Implementation Manager Required: No Beliefs That Will Affect Care: None marital status: marital status details: Derrek Encinas (29) [phone] Current Living Situation: Spouse and Family Current Living Situation Comment: 2 dogs 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 @ [employer] Other Information That Helps Us Care for You: No Feels Safe at Home: Yes Safety Concerns: Feels Safe At This Time Smoking Status: Never smoker Do You Dip or Chew Tobacco: No ; Second Hand Exposure: No ; Hx Alcohol Use: No Hx Substance Use: No Childhood Exposure to Second-Hand Smoke: No Physical Exam Constitutional: WD/WN, vitals as above Respiratory: normal respiratory effort, lungs clear to auscultation Cardiovascular: RRR, no murmur, no edema Gastrointestinal (Abdomen): normal bowel sounds, soft, nontender, no hepatosplenomegaly Genitourinary: OB Exam Abdomen: + heart tones and + vertex Results & Data Vital Signs (Past 12 Hours) Vital Signs Temp Pulse Resp BP 08/17/19 05:46 108 H 112/68 08/17/19 05:45 97.7 F 18 Coding Level of Care Code None Diagnoses Previous delivery affecting O34.219
--- NOTE | 2019-08-17 07:05 | History & Physical Bridge Note ---
Date of Service August 17, 2019 History & Physical Bridge Note I have examined the patient, reviewed the History & Physical and in the interval since the performance of the History & Physical I have noted the following changes of clinical significance: no changes noted
--- NOTE | 2019-08-17 07:32 | Anesthesiology Consultation ---
Date of Service August 17, 2019 Assessment & Plan (1) Encounter for pre-operative examination: Chart Review Chart Review: Acceptable Risk for Surgery and Patient NOT seen in Pre Admission Testing Consults Requested none History Surgery Operation Date: 08/17/19 07:30 Proposed Procedures p Section in LD - Libertad Casanova MD, FACOG Height/Weight Height: 5 ft 5 in Weight: 108.862 kg Allergies Allergy/AdvReac Type Severity Reaction Status Date / Time No Known Allergies Allergy Verified 08/11/19 08:37 Medications Home Medications Medication Instructions Recorded Confirmed Last Taken PNV cmb#95-ferrous fumarate-FA 1 tab PO QAM 07/20/19 08/17/19 08/16/19 22:00 [] valacyclovir 1,000 mg PO DAILY PRN 07/20/19 08/17/19 08/16/19 22:00 Active Medications Generic Name Dose Route Start Last Admin Trade Name Freq PRN Reason Stop Dose Admin Lactated Ringer's 1,000 mls @ 999 mls/hr 08/17/19 07:00 08/17/19 06:56 Lr IV 08/17/19 08:00 125 mls/hr .Q1H1M [place] Administration NPO Date Last Intake of Fluids: 08/16/19 Time Last Intake of Fluids: 23:00 Date Last Intake of Solids: 08/16/19 Time Last Intake of Solids: 20:30 Past Medical History Medical History Herpes simplex Past Family History Family History Father Diabetes Mother FHx: kidney cancer Thyroid disease Gestational diabetes Past Surgical History Surgical History History of (Acute) FTP, 05/2017 [facility] [place] History of D&C 2018 History of tooth extraction Hx of Social History Smoking Status: Never smoker Do You Dip or Chew Tobacco: No Hx Alcohol Use: No Hx Substance Use: No Physical Exam Vital Signs Last Vital Signs Temp 36.5 C 08/17/19 05:45 Pulse 89 08/17/19 07:25 Resp 18 08/17/19 05:45 BP 112/68 08/17/19 05:46 Pulse Ox 100 08/17/19 07:25 Testing Laboratory Results 08/17/19 05:45 Blood Type B Positive 08/17/19 05:45 Antibody Screen NEGATIVE 08/17/19 05:45
[2019-08-17] MEDS ORDERED: ONDANSETRON INJ 2 MG/ML 2 ML VIAL IV PRN (07:35)
[2019-08-17] MEDS ORDERED: ePHEDrine sulfate 50 MG/ML AMP IV PRN (07:35)
[2019-08-17] MEDS ORDERED: NALOXONE HCL 0.4 MG/1 ML VIAL/CARP IV PRN (07:35)
[2019-08-17] MEDS ORDERED: NALOXONE HCL 1 MG in SODIUM CHLORIDE 0.9% 1000ML 1,000 ML IV PRN (07:35)
[2019-08-17] MEDS ORDERED: MoRPHine SULFATE PF 1 MG/ML 10 ML AMP/VIAL INT SPINAL ONE (07:35)
[2019-08-17] MEDS ORDERED: NALOXONE HCL 0.08 MG in SYRINGE 1.8 ML IV PRN (07:35)
[2019-08-17] MEDS ORDERED: HYDROmorphone INJ 0.5 MG/0.5 ML SYR IV PRN (07:35)
[2019-08-17] MEDS ORDERED: LACTATED RINGER'S 500 ML IV PRN (07:35)
[2019-08-17] MEDS ORDERED: NALBUPHINE HCL INJ 10 MG/ML AMP IV PRN (07:35)
[2019-08-17] MEDS ORDERED: fentaNYL citrate 100 MCG/2 ML VIAL ONE (07:37)
[2019-08-17] MEDS ORDERED: MoRPHine SULFATE PF 1 MG/ML 10 ML AMP/VIAL ONE (07:37)
[2019-08-17] MEDS ORDERED: SODIUM CHLORIDE 0.9% 1000ML 1,000 ML IV SCH (07:45)
[2019-08-17] MEDS ORDERED: DC INTRASPINAL MORPHINE SCH (07:45)
[2019-08-17] MEDS ORDERED: NO NARCOTICS OR SEDATIVES SCH (07:45)
[2019-08-17] MEDS ORDERED: OXYTOCIN 10 UNITS/ML VIAL ONE ×2 (07:48→08:07)
[2019-08-17] MEDS ORDERED: ONDANSETRON INJ 2 MG/ML 2 ML VIAL ONE ×2 (07:48→08:19)
[2019-08-17] MEDS ORDERED: PHENYLEPHRINE 100MCG/ML 5ML SYR ONE (07:48)
[2019-08-17] MEDS ORDERED: DIPHTHERIA/TETANUS/PERTUSSIS 0.5 ML SYR/VIAL IM ONE (08:33)
[2019-08-17] MEDS ORDERED: HYDROCORTISONE ACETATE 25 MG SUPP PR PRN (08:33)
[2019-08-17] MEDS ORDERED: BENZOCAINE 20% AER SPR 82.5 GM CAN EXT PRN (08:33)
[2019-08-17] MEDS ORDERED: MAGNESIUM HYDROXIDE SUSP 30 ML UDC PO PRN (08:33)
[2019-08-17] MEDS ORDERED: SUPERCREAM 0.870% 15 GM JAR EXT PRN (08:33)
[2019-08-17] MEDS ORDERED: SENNA 8.6 MG TAB PO PRN (08:33)
[2019-08-17 08:41] LABS: Base Excess Cord Arterial Bld -1.1 mEq/L (-9-1.8); CO2 Cord Arterial Blood 55 mmHg (39.1-73.5); HCO3 Cord Arterial Blood 27 mmol/L (19.7-28.5); PO2 Cord Arterial Blood 12 mmHg (4.1-31.7)
[2019-08-17 08:45] LABS: Base Excess Cord Venous Blood -1.1 mEq/L (-7.7-1.9); Cord Venous Blood HCO3 25 mmol/L (18.4-26.8); Cord Venous Blood PCO2 49 mmHg (30.4-57.2); Cord Venous Blood PO2 22 mmHg (14.1-43.3); Cord Venous Blood pH 7.33 (7.20-7.44)
[2019-08-17] MEDS ORDERED: LACTATED RINGER'S 1,000 ML IV SCH (08:45)
[2019-08-17 08:46] LABS: O2 Saturation Cord Venous Bld < 60.0 % (<68); Oxygen Sat Cord Arterial Blood < 60.0 % (<60)
--- NOTE | 2019-08-17 09:13 | Operative Report ---
[facility] Post Operative Report Pre & Post Diagnosis Operation Date: 08/17/19 07:30 Pre-Op Diagnosis: repeat section 39 completed weeks gestation I identified the patient and participated in the time-out.: Yes Procedure Operation Date: 08/17/19 07:30 <No data on this case meets the specified criteria> Surgeon Libertad Casanova MD, FACOG Refrigerator Repairman Dr. Hardy Estimated Blood Loss 600 Findings Consistent with Post-Op Diagnosis Specimens cord blood, gases Description of Procedure Regional anesthetic was given by anesthesia patient had a Mcgregor catheter inserte d by nursing patient was prepped and draped in supine position with a leftward tilt preoperative antibiotics were given timeout performed Pickups with teeth were used to test the skin site and it was found adequate for incision scalpel used to make a Pfannenstiel incision cutting down through subcutaneous fat through the fascia fascia was then dissected laterally with the curved Cool's fascia was released superiorly and inferiorly from the rectus muscles with the curved Cool scissors, rectus muscle split peritoneal cavity entered in a superior location. Opening enlarged to allow exposure bladder retractor placed Metzenbaums used to dissect away the bladder flap low segment transverse incision made on the uterus with scalpel entry was done bluntly with the profile mill operator tape control's finger hysterotomy incision extended with the profile mill operator tape control's finger in the usual fashion. I did use bandage scissors as well, baby was delivered then by use of the vacuum as initial attempt without was unsuccessful. baby was then delivered with flexion of the head and pressure from the assistant clinical nurse manager on the abdomen mouth and then nares were suctioned baby was then delivered fully without difficulty without excessive force live vigorous cord clamped and cut cord gases obtained cord blood obtained placenta removed manually within ensured all placenta removed with a moist lap sponge uterus exteriorized IV Pitocin had been started by anesthesia and uterine tone improved. The uterus was closed in 2 layers first layer and 0 Monocryl running locked second layer 0 Monocryl nonlocked after generous irrigation and suction of the cul-de-sac and bladder flap regions hemostasis was excellent uterus was placed back in the peritoneal cavity and hemostasis was excellent rectus muscles were inspected and found to be dry fascia closed with 0 Vicryl subcutaneous fat closed with 3-0 Vicryl prior to this subcutaneous fat was irrigated skin closed with 4-0 subcuticular Monocryl incision Steri-Stripped urine was clear at the end of the procedure I attest to the content of the Intraoperative Record and any orders documented therein. Any exceptions are noted below.
[2019-08-17] MEDS: KETOROLAC 30 MG/ML VIAL IV PRN ×3 (09:27→21:18)
[2019-08-17] MEDS: OXYTOCIN 20 UNITS in LACTATED RINGER'S 1,000 ML IV SCH ×2 (09:31→18:54)
--- NOTE | 2019-08-17 10:03 | Anesthesiology Progress Note ---
Date of Service August 17, 2019 Anesthesia Post Procedure Vital Signs Vital Signs: Temp Pulse Resp BP Pulse Ox 08/17/19 09:57 74 96 08/17/19 09:52 76 95 08/17/19 09:47 72 97 08/17/19 09:44 81 113/65 08/17/19 09:43 20 08/17/19 09:42 75 97 08/17/19 09:37 78 97 08/17/19 09:33 75 101/59 L 08/17/19 09:32 74 97 08/17/19 09:27 80 95 08/17/19 09:23 76 20 96/53 L 08/17/19 09:22 83 97 08/17/19 09:17 85 96 08/17/19 09:15 18 08/17/19 09:13 80 20 111/55 L 08/17/19 09:12 87 97 08/17/19 09:10 94 H 93 08/17/19 09:07 89 97 08/17/19 09:03 88 117/56 L 08/17/19 09:02 87 100 08/17/19 08:57 90 99 08/17/19 08:53 83 20 104/56 L 08/17/19 08:52 85 98 08/17/19 08:47 97 H 99 08/17/19 08:45 94 H 104/58 L 08/17/19 08:42 36.5 C 101 H 20 99 08/17/19 07:25 89 100 08/17/19 05:46 108 H 112/68 08/17/19 05:45 36.5 C 18 Pain Intensity Bilateral Abdomen: Pain Intensity: 2 Transfer of Care Handoff Completed per policy Notes Mental Status: alert / awake / arousable Patient Amnestic to Procedure: Yes Nausea / Vomiting: adequately controlled Pain: adequately controlled Airway Patency, RR, SpO2: stable & adequate BP & HR: stable & adequate Hydration State: stable & adequate Neuraxial Anesthesia: was administered and sensory block is resolving Anesthetic Complications: no major complications apparent and Pt Satisfied with anesthetic care
[2019-08-17] MEDS: DiphenhydrAMINE HCL 50 MG/ML VIAL IV PRN ×3 (10:04→23:44)
[2019-08-17] MEDS ORDERED: ACETAMINOPHEN 1,000 MG/100 ML VIAL IV STA (10:52)
[2019-08-17] MEDS ORDERED: ACETAMINOPHEN 1000 MG/100 ML IV IV ONE (10:55)
[2019-08-17] MEDS: SIMETHICONE 80 MG CHEW PO SCH ×3 (14:29→21:19)
[2019-08-17] MEDS: DOCUSATE SODIUM 100 MG CAP PO SCH (21:19)
[2019-08-18] MEDS ORDERED: DiphenhydrAMINE HCL 50 MG/ML VIAL IV PRN (01:36)
[2019-08-18] MEDS ORDERED: KETOROLAC 30 MG/ML VIAL IV PRN (01:36)
[2019-08-18] MEDS ORDERED: ONDANSETRON INJ 2 MG/ML 2 ML VIAL IV PRN (01:36)
[2019-08-18] MEDS ORDERED: PROMETHAZINE HCL 25 MG in SODIUM CHLORIDE 0.9% 50 ML IV PRN (01:36)
[2019-08-18] MEDS: OXYCODONE/ACETAMINOPHEN 5mg/325mg TAB PO PRN ×4 (02:06→15:38)
[2019-08-18] MEDS: IBUPROFEN 600 MG TAB PO PRN ×4 (02:06→15:37)
[2019-08-18 05:53] LABS: Basophils # (auto) 0.01 K/uL (0-0.2); Basophils % (auto) 0.1 %; Eosinophils # (auto) 0.11 K/uL (0-0.5); Eosinophils % (auto) 1.4 %; Hematocrit (blood only) 31.9 % (37-47); Hemoglobin 10.5 g/dL (12.0-16.0); Immature Granulocytes # (auto) 0.03 K/uL (0.00-0.02); Immature Granulocytes % (auto) 0.4 %; Lymphocytes % (auto) 24.6 %; Mean Corpuscular Hemoglobin 29.7 pg (25-34); Mean Corpuscular Hgb Conc 32.9 g/dL (32-36); Mean Corpuscular Volume 90.1 fL (80-100); Mean Platelet Volume 9.5 fL (7.4-10.4); Monocytes # (auto) 0.88 K/uL (0.11-0.59); Monocytes % (auto) 10.8 %; Neutrophils # (auto) 5.11 K/uL (1.4-6.5); Neutrophils % (auto) 62.7 %; Platelet Count 210 K/uL (130-400); RDW Coefficient of Variation 13.2 % (11.5-14.5); RDW Standard Deviation 43.7 fL (36.4-46.3); Red Blood Count 3.54 M/uL (4.2-5.4); White Blood Count 8.14 K/uL (4.8-10.8)
[2019-08-18] MEDS: SIMETHICONE 80 MG CHEW PO SCH ×2 (07:44→11:10)
[2019-08-18] MEDS: DOCUSATE SODIUM 100 MG CAP PO SCH (07:44)
[2019-08-18] MEDS ORDERED: FERROUS SULFATE 325 MG TAB PO SCH (08:00)
[2019-08-18] MEDS ORDERED: PRENATAL VITAMIN 1 TAB PO SCH (08:00)
--- NOTE | 2019-08-18 08:27 | Obstetrical Progress Note ---
Date of Service August 18, 2019 Assessment & Plan (1) Encounter for pre-operative examination: 28 yo day 1 s/p LTCS. Doing well and is requesting d/c. Meeting all post CS goals and is stable for discharge this evening (2) Retained products of conception without hemorrhage: Subjective Ambulation: ambulating normally Voiding: no voiding problems Passing Gas:: Yes Diet Tolerance:: regular diet Lochia:: Moderate Feeding Type:: breast feeding Physical Exam Constitutional WD/WN, vitals as above Respiratory normal respiratory effort; no respiratory distress and no labored breathing Gastrointestinal (Abdomen) Inspection/Auscultation: abdomen normal to inspection; abdomen not distended Percussion/Palpation: abdomen soft; abdomen nontender, no guarding and abdomen not rigid Wound dressing intact Genitourinary OB Exam Abdomen: + fundal height Fundus: + firm and + relation to umbilicus (Below); not tender and not boggy Results & Data Vital Signs (Past 12 Hours) Vital Signs Temp Pulse Resp BP Pulse Ox 08/18/19 04:10 36.6 C 67 18 100/62 08/18/19 01:30 18 96 08/18/19 00:15 18 95 08/17/19 23:50 36.8 C 75 18 100/64 95 08/17/19 23:20 18 95 08/17/19 22:20 18 98 08/17/19 21:20 16 98
[2019-08-18] MEDS ORDERED: bisacodyL 5 MG TABEC PO SCH (20:00)
[2019-08-19] MEDS ORDERED: bisacodyL 10 MG SUPP PR PRN (08:33)
--- NOTE | 2019-08-23 11:24 | Discharge Summary ---
Date of Service August 23, 2019 Admission HPI Per Admitting Provider Previous section and wishes repeat. Currently 39+ weeks GA and uncomplicated Admission Exam (Per Admitting) Constitutional WD/WN, vitals as above Respiratory normal respiratory effort, lungs clear to auscultation Cardiovascular RRR, no murmur, no edema Gastrointestinal (Abdomen) normal bowel sounds, soft, nontender, no hepatosplenomegaly Discharge Data Consultations 08/17/19 05:06 Consult Anesthesiology Stat Procedures Performed Operation Date: 08/17/19 07:30 Actual Procedures p Section in labor for delivery of live male infant at 0804 - J. Adi Casanova MD, [facility] [place] Course (1) Encounter for pre-operative examination: 28 yo day 1 s/p LTCS. Doing well and is requesting d/c. Meeting all post CS goals and is stable for discharge this evening Coding Level of Care Code None Diagnoses Encounter for pre-operative examination Z01.818
== END 2019-08-18 17:20 | disposition home or self-care (01) | DRG 788 ==
LOC: 4S1 05:34 → EDSTATUS 08:50 → 4S2 11:40
DX: Z37.0 Single live birth; Z3A.39 39 weeks gestation of pregnancy; O34.211 Maternal care for low transverse scar from previous cesarean delivery

== ENCOUNTER 2022-03-16 05:43 | Inpatient (IN) ==
--- NOTE | 2022-03-13 13:43 | Anesthesiology Consultation ---
Date of Service March 13, 2022 Assessment & Plan (1) Encounter for pre-operative examination: - C-sections 06/15/17 and 08/17/19. 08/17/19: L3-L4 SAB 1 attempt. - COVID screening: Per cytology teacher on 03/13/2022: Travel screen negative, no known COVID-19 positive contacts or current COVID-19 related symptoms in past 2 weeks. To surgeon's discretion if preop COVID testing needed. Chart Review Chart Review: Acceptable Risk for Surgery and Patient NOT seen in Pre Admission Testing History Surgery Operation Date: 03/16/22 07:30 Proposed Procedures p Section (Delivery of Baby Through Abdominal Incision) - Libertad Casanova MD, FACOG Height/Weight Height: 5 ft 5 in Weight: 108.862 kg Allergies Allergy/AdvReac Type Severity Reaction Status Date / Time No Known Allergies Allergy Verified 03/13/22 12:51 Medications Home Medications Medication Instructions Recorded Confirmed Last Taken vit no.95-ferrous 1 tab PO QAM 07/20/19 03/13/22 08/16/19 22:00 fumarate 28 mg-folic acid 800 mcg tablet () valacyclovir 1 gram tablet 1,000 mg PO BID PRN cold sores #14 05/03/21 03/13/22 Unknown (Valtrex) tabs Past Medical History Medical History Herpes simplex hx-cold sores History of anemia History of chicken pox Past Family History Family History Father Diabetes Myocardial infarction Mother FHx: kidney cancer Thyroid disease Gestational diabetes Hypertension FH: hypercholesterolemia Denies family history of Ovarian cancer Prostate cancer Breast cancer Colorectal cancer Past Surgical History Surgical History History of 05/2017; 2019 History of D&C 2018 History of tooth extraction Hx of Social History Smoking Status: Never smoker Do You Dip or Chew Tobacco: No Hx Alcohol Use: Yes ("not while ") Alcohol type: wine alcohol intake frequency: a few times a week Hx Substance Use: No substance use type: does not use
--- NOTE | 2022-03-15 16:22 | History & Physical Report ---
Date of Service March 15, 2022 Assessment & Plan (1) Previous delivery affecting : Plan: Repeat section. The patient was counseled to the nature of the procedure including alternatives such as labor. Risks were discussed including bleeding infection injury to bowel bladder ureter vessels and even baby. The risks of internal organ injury were discussed as being higher with prior sections. Deep Vein Thrombosis, pulmonary embol us and breakdown of the incision discussed. Deep vein thrombosis pulmonary embolus hernia and failure of the incision to heal were discussed Patient verbalized understanding of this and was given ample time to ask questions History of Present Illness Primary Care Provider: Liya Valenzuela PA-C requests section, 2 prior Allergies Allergy/AdvReac Type Severity Reaction Status Date / Time No Known Allergies Allergy Verified 03/14/22 10:33 Home Medications Medication Instructions Recorded Confirmed Type vit no.95-ferrous 1 tab PO QAM 07/20/19 03/14/22 History fumarate 28 mg-folic acid 800 mcg tablet () valacyclovir 1 gram tablet 1,000 mg PO BID PRN cold sores #14 05/03/21 03/14/22 Rx (Valtrex) tabs Patient History Medical History Herpes simplex hx-cold sores History of anemia History of chicken pox Surgical History History of 05/2017; 2019 History of D&C 2015, 2018 History of tooth extraction Hx of Family History Father Diabetes Myocardial infarction Mother FHx: kidney cancer Thyroid disease Gestational diabetes Hypertension FH: hypercholesterolemia Denies family history of Ovarian cancer Prostate cancer Breast cancer Colorectal cancer Social History (Updated 08/09/21 @ 08:54 by Monisha Joshua) Smoking Status: Never smoker Second Hand Exposure: No; Hx Alcohol Use: Yes ("not while ") Alcohol type: wine Hx Substance Use: No Preferred Language: Singaporean Communication Ability: Effective Visual Impairment: No Limitations Telesales Team Leader Required: No Beliefs That Will Affect Care: None marital status: marital status details: Derrek Gonzalezrachele (32) [phone] Current Living Situation: Spouse and Family Current Living Situation Comment: lives with spouse, 2 kids, 2 dogs. 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 @ [employer] Feels Safe at Home: Yes Childhood Exposure to Second-Hand Smoke: No Dental Care, Regularly: Yes Physical Activity Frequency: Daily Physical Activity Frequency Comment: walking Seatbelt Use: always Sunscreen Use: Yes Assistive Devices: None Review of Systems as per Subjective / HPI Physical Exam Constitutional: WD/WN, vitals as above well developed and well nourished Respiratory: normal respiratory effort, lungs clear to auscultation normal respiratory effort Cardiovascular: RRR, no murmur, no edema Gastrointestinal (Abdomen): normal bowel sounds, soft, nontender, no hepatosplenomegaly Coding Level of Care Code None Diagnoses Previous delivery affecting O34.219
[2022-03-16] MEDS ORDERED: SODIUM CHLORIDE 0.9% 250 ML IV PRN (05:58)
[2022-03-16] MEDS ORDERED: CITRIC ACID/SODIUM CITRATE 15 ML UDC PO SCH (06:00)
[2022-03-16] MEDS ORDERED: ceFAZolin 3,000 MG in DEXTROSE 5% 50 ML IV SCH (06:00)
[2022-03-16] MEDS ORDERED: LACTATED RINGER'S 1,000 ML IV SCH ×2 (06:00→09:21)
[2022-03-16 06:09] LABS: Basophils # (auto) 0.02 K/uL (0-0.2); Basophils % (auto) 0.4 %; Eosinophils # (auto) 0.01 K/uL (0-0.50); Eosinophils % (auto) 0.2 %; Hematocrit (blood only) 32.5 % (34.1-44.9); Immature Granulocytes # (auto) 0.03 K/uL (0.00-0.02); Immature Granulocytes % (auto) 0.6 %; Lymphocytes # (auto) 1.24 K/uL (1.2-3.4); Lymphocytes % (auto) 24.2 %; Mean Corpuscular Hemoglobin 29.7 pg (25.0-34.0); Mean Corpuscular Hgb Conc 33.8 g/dL (32.0-36.0); Mean Corpuscular Volume 87.8 fL (80.0-100.0); Mean Platelet Volume 10.6 fL (9.4-12.3); Monocytes # (auto) 0.66 K/uL (0.24-0.82); Monocytes % (auto) 12.9 %; Neutrophils # (auto) 3.17 K/uL (1.4-6.5); Neutrophils % (auto) 61.7 %; Platelet Count 241 K/uL (130-400); RDW Coefficient of Variation 13.4 % (11.5-14.5); RDW Standard Deviation 42.5 fL (36.4-46.3); White Blood Count 5.13 K/ul (4.8-10.8)
--- NOTE | 2022-03-16 07:04 | History & Physical Bridge Note ---
Date of Service March 16, 2022 History & Physical Bridge Note I have examined the patient, reviewed the History & Physical and in the interval since the performance of the History & Physical I have noted the following changes of clinical significance: no changes noted Covid Pos
[2022-03-16] MEDS ORDERED: MoRPHine SULFATE 2 MG/ML CARP IV PRN (07:21)
[2022-03-16] MEDS ORDERED: NALOXONE HCL 0.4 MG/1 ML VIAL/CARP IV PRN (07:21)
[2022-03-16] MEDS ORDERED: ONDANSETRON INJ 2 MG/ML 2 ML VIAL IV PRN (07:21)
[2022-03-16] MEDS ORDERED: MEPERIDINE HCL 25 MG/ML CARP/VIAL IV PRN (07:21)
[2022-03-16] MEDS ORDERED: PROMETHAZINE HCL 25 MG in SODIUM CHLORIDE 0.9% 50 ML IV PRN (07:21)
[2022-03-16] MEDS ORDERED: ePHEDrine sulfate 50 MG/ML AMP IV PRN (07:21)
[2022-03-16] MEDS ORDERED: HYDROmorphone INJ 0.5 MG/0.5 ML SYR IV PRN (07:21)
[2022-03-16] MEDS ORDERED: LACTATED RINGER'S 500 ML IV PRN (07:21)
[2022-03-16] MEDS ORDERED: MoRPHine SULFATE PF 1 MG/ML 10 ML AMP/VIAL INT SPINAL ONE (07:21)
[2022-03-16] MEDS ORDERED: NALBUPHINE HCL INJ 10 MG/ML AMP IV PRN (07:21)
[2022-03-16] MEDS ORDERED: diphenhydrAMINE 50 MG/ML VIAL IV PRN (07:21)
[2022-03-16] MEDS ORDERED: NALOXONE HCL 0.08 MG in SYRINGE 1.8 ML IV PRN (07:21)
[2022-03-16] MEDS ORDERED: NALOXONE HCL 1 MG in SODIUM CHLORIDE 0.9% 1000ML 1,000 ML IV PRN (07:21)
[2022-03-16] MEDS ORDERED: NO NARCOTICS OR SEDATIVES SCH (07:30)
[2022-03-16] MEDS ORDERED: DC INTRASPINAL MORPHINE SCH (07:30)
[2022-03-16] MEDS ORDERED: SODIUM CHLORIDE 0.9% 1000ML 1,000 ML IV SCH (07:30)
[2022-03-16] MEDS ORDERED: OXYTOCIN 10 UNITS/ML 10ML VIAL ONE (07:40)
[2022-03-16] MEDS ORDERED: METHYLERGONOVINE MALEATE 0.2 MG/ML AMP ONE (07:41)
[2022-03-16] MEDS ORDERED: PROPOFOL IV EMULSION 10 MG/ML 20 ML VIAL IV ONE (07:48)
--- NOTE | 2022-03-16 08:55 | Operative Report ---
PG Post Operative Report Pre & Post Diagnosis Operation Date: 03/16/22 07:30 Pre-Op Diagnosis: Previous Section ; 39 Completed Weeks Post-Op Diagnosis: Same; Delivery of a live baby girl at 0817 I identified the patient and participated in the time-out.: Yes Procedure Operation Date: 03/16/22 07:30 Actual Procedures p Section (Delivery of Baby Through Abdominal Incision) - Libertad Casanova MD, FACOG Surgeon Libertad Casanova MD, FACOG Senior Manager [employer] Services Dr. Ballard Estimated Blood Loss 600 Findings Consistent with Post-Op Diagnosis Specimens Cord blood cord gases Description of Procedure Regional anesthetic had been given by anesthesia patient was prepped and draped with a leftward tilt preoperative antibiotics had been given in appropriate timing by anesthesiology. Once the prep was allowed to fully dry timeout was performed. Pickups with teeth were used to test the incision area was found to be adequate for incision as the patient did not feel sharp pain. Scalpel was used to make a Pfannenstiel incision on the lower abdomen. We then cut through the subcutaneous fat down to the level of the anterior rectus sheath fascia this was cut in the midline and then extended laterally with the curved Cool scissors. At this stage we then placed 2 Ricky clamps on the anterior aspect of the fascia. Using the curved Cool's we are able to dissect the fascia superiorly away from the rectus muscles. Care was taken to maintain hemostasis. Ricky clamps were then placed to the inferior aspect of the anterior sheath of the fascia. Fascia was then dissected away from the rectus muscles inferiorly towards the pubic bone. A Ricky was then placed in the midline both inferiorly and superiorly. This was to allow exposure by retraction rectus muscles were in the midline with were then able to cut through the peritoneum and then enter the peritoneal cavity. Opening was enlarged to allow exposure of the peritoneal cavity both superiorly and inferiorly. Once adequate space was obtained a bladder retractor was placed to expose the lower segment Metzenbaums were used to dissect the bladder flap inferiorly away from the uterus. This was done sharply bladder retractor was then repositioned to expose the lower segment of the uterus. It should be noted that there were some omental adhesions to the anterior abdominal wall that were lysed carefully Fresh scalpel was used to make a low transverse incision on the uterus. Uterus was then entered bluntly with the operators finger, membranes ruptured and the opening was enlarged using the operators fingers bluntly pulling superiorly and inferiorly to allow exposure. We attempted to deliver the baby's head by flexion and assistance from the safety assistant on the abdominal fundus however the baby would not fit through easily we attempted a vacuum attachment with a mighty VAC however it failed to apply a seal even when properly applicator. We then used bandage scissors to make small lengthenings of the uterine incision on each side this still failed to allow the baby's head out and then finally I made a small incision of the left rectus muscles transversely this allowed the baby then to be delivered. Head was delivered and then gentle traction on the baby no nuchal cord fluid was clear cord clamped and cut cord gases obtained cord blood obtained baby handed to pediatrics. Placenta removed was removed with traction we ensure the entire placenta was removed with a moist lap sponge into the uterus Uterus was then exteriorized. IV Pitocin had been started by anesthesia tone improved there were no extensions the uterus was then closed using 0 Monocryl in a 2 layer closure the first layer closed in a running locked fashion from left to right and then a second closure from left to right in a running nonlocked fashion. At this stage hemostasis was excellent. Uterus was placed back in the peritoneal cavity with suction irrigation out and inspection of the uterus at this stage revealed excellent hemostasis. The extensions were not significant as they were just lengthening of the low transverse incision should be noticed we also repaired the small rectus muscle cut with [id number] 0 Vicryl hemostasis was excellent we inspected the rectus muscles very carefully for hemostasis and this was excellent Retractors were removed urine color was clear at this stage of the case we inspected the rectus muscles they were hemostatic fascia was closed with 0 Vicryl subcutaneous fat was irrigated and closed with 3-0 Vicryl skin closed with 4-0 subcuticular Monocryl I attest to the content of the Intraoperative Record and any orders documented therein. Any exceptions are noted below. OB Procedure Charges 69745
[2022-03-16 08:58] LABS: Base Excess Cord Arterial Bld -7.6 mEq/L (-9-1.8); CO2 Cord Arterial Blood 91 mmHg (39.1-73.5); HCO3 Cord Arterial Blood 26 mmol/L (19.7-28.5); Oxygen Sat Cord Arterial Blood < 60.0 % (<60); PO2 Cord Arterial Blood 7 mmHg (4.1-31.7); pH Cord Arterial Blood 7.06 (7.1-7.38)
[2022-03-16 08:59] LABS: Base Excess Cord Venous Blood -2.6 mEq/L (-7.7-1.9); Cord Venous Blood HCO3 25 mmol/L (18.4-26.8); Cord Venous Blood PCO2 52 mmHg (30.4-57.2); Cord Venous Blood PO2 23 mmHg (14.1-43.3); Cord Venous Blood pH 7.29 (7.20-7.44); O2 Saturation Cord Venous Bld < 60.0 % (<68)
[2022-03-16] MEDS ORDERED: diphenhydrAMINE 50 MG/ML VIAL IV STA (09:07)
[2022-03-16] MEDS ORDERED: HYDROCORTISONE ACETATE 25 MG SUPP PR PRN (09:21)
[2022-03-16] MEDS ORDERED: MAGNESIUM HYDROXIDE SUSP 30 ML UDC PO PRN (09:21)
[2022-03-16] MEDS ORDERED: BENZOCAINE 20% AER SPR 82.5 GM CAN EXT PRN (09:21)
[2022-03-16] MEDS ORDERED: SENNA 8.6 MG TAB PO PRN (09:21)
[2022-03-16] MEDS ORDERED: DIPHTHERIA/TETANUS/PERTUSSIS 0.5 ML SYR/VIAL IM ONE (09:21)
[2022-03-16] MEDS: KETOROLAC 30 MG/ML VIAL IV PRN ×3 (09:29→21:09)
--- NOTE | 2022-03-16 12:24 | Anesthesiology Progress Note ---
Date of Service March 16, 2022 Anesthesia Post Procedure Vital Signs Vital Signs: Temp Pulse Resp BP Pulse Ox 03/16/22 11:07 36.8 C 18 03/16/22 10:07 16 03/16/22 09:57 18 03/16/22 09:37 16 03/16/22 09:27 16 03/16/22 09:17 18 03/16/22 09:07 36.7 C 16 03/16/22 06:21 36.4 C L 18 03/16/22 11:42 80 97 03/16/22 11:37 96 H 97 03/16/22 11:32 93 H 96 03/16/22 11:27 83 97 03/16/22 11:22 83 92 03/16/22 11:17 73 96 03/16/22 11:18 70 104/55 L 03/16/22 11:12 68 94 03/16/22 11:07 79 93 03/16/22 11:08 76 108/56 L 03/16/22 11:02 74 94 03/16/22 10:57 99 H 113/62 96 03/16/22 10:52 68 96 03/16/22 10:47 71 95 03/16/22 10:48 78 111/63 03/16/22 10:42 66 96 03/16/22 10:37 66 95 03/16/22 10:38 64 109/57 L 03/16/22 10:32 84 95 03/16/22 10:27 85 98 03/16/22 10:28 83 108/61 03/16/22 10:22 84 99 03/16/22 10:17 69 100 03/16/22 10:18 62 115/64 03/16/22 10:12 88 99 03/16/22 10:08 88 119/63 03/16/22 10:07 89 97 03/16/22 10:02 85 98 03/16/22 09:57 93 H 109/57 L 98 03/16/22 09:52 83 98 03/16/22 09:47 82 97 03/16/22 09:48 91 H 110/57 L 03/16/22 09:42 91 H 97 03/16/22 09:37 68 93 03/16/22 09:38 71 118/61 03/16/22 09:32 102 H 96 03/16/22 09:27 85 124/67 96 03/16/22 09:22 101 H 96 03/16/22 09:21 110 H 93 03/16/22 09:18 104 H 126/68 03/16/22 09:17 101 H 97 03/16/22 09:12 95 03/16/22 09:12 94 H 03/16/22 09:12 88 93 03/16/22 09:07 100 H 119/66 99 03/16/22 05:52 18 03/16/22 05:52 36.4 C L 18 03/16/22 05:54 102 H 114/72 Pain Intensity Bilateral Abdomen: Pain Intensity: 4 Transfer of Care Handoff Completed per policy Notes Mental Status: alert / awake / arousable and participated in evaluation Nausea / Vomiting: adequately controlled Pain: adequately controlled Airway Patency, RR, SpO2: stable & adequate BP & HR: stable & adequate Hydration State: stable & adequate Neuraxial Anesthesia: was administered and sensory block is resolving Anesthetic Complications: no major complications apparent and Pt Satisfied with anesthetic care
[2022-03-16] MEDS: OXYTOCIN 20 UNITS in LACTATED RINGER'S 1,000 ML IV SCH ×2 (13:00→21:20)
[2022-03-16] MEDS: SIMETHICONE 80 MG CHEW PO SCH ×3 (15:10→21:08)
[2022-03-16] MEDS: DOCUSATE SODIUM 100 MG CAP PO SCH (21:08)
[2022-03-17] MEDS ORDERED: KETOROLAC 30 MG/ML VIAL IV PRN (01:21)
[2022-03-17] MEDS ORDERED: diphenhydrAMINE Capsule 25 MG CAP PO PRN (01:21)
[2022-03-17] MEDS ORDERED: PROMETHAZINE HCL 25 MG in SODIUM CHLORIDE 0.9% 50 ML IV PRN (01:21)
[2022-03-17] MEDS ORDERED: diphenhydrAMINE 50 MG/ML VIAL IV PRN (01:21)
[2022-03-17] MEDS ORDERED: ONDANSETRON INJ 2 MG/ML 2 ML VIAL IV PRN (01:21)
[2022-03-17] MEDS: IBUPROFEN 600 MG TAB PO PRN ×4 (03:35→15:23)
[2022-03-17] MEDS: oxyCODONE/ACETAMINOPHEN 5mg/325mg TAB PO PRN ×4 (03:36→15:22)
[2022-03-17] MEDS ORDERED: SODIUM CHLORIDE 0.65% NA SOLN 45 ML (OCEAN) ONE (04:05)
--- NOTE | 2022-03-17 06:09 | Obstetrical Progress Note ---
Date of Service March 17, 2022 Assessment & Plan (1) care following delivery: Plan stable doing well. am labs not drawn yet. she looks well and asking about d/c day 1. just voided large amount, feels emptied well. small clots. enc her to see how day goes and will let oncoming md know of pt wishes. do not feel comfortable with dc this am. enc ambul, cont monitor voids, cont with regular diet and pain mgmt. await labs, breast/rhpos/ri. Day #:: 1 Subjective Ambulation: ambulating normally Voiding: no voiding problems Passing Gas:: Yes Diet Tolerance:: regular diet Lochia:: Small Feeding Type:: breast feeding no pain issues. Constitutional: + as per Subjective / HPI Physical Exam Constitutional WD/WN, vitals as above Respiratory normal respiratory effort, lungs clear to auscultation Cardiovascular Rate/Rhythm: regular rate and regular rhythm Gastrointestinal (Abdomen) Inspection/Auscultation: abdomen normal to inspection and + abdominal surgical incision (c/d/i with steris) Percussion/Palpation: abdomen soft Fundus firm 1cm down Musculoskeletal nt calves [] edema Neurologic grossly normal Psychiatric A+Ox3, euthymic affect Results & Data ([facility]) Vital Signs (Past 12 Hours) Vital Signs Temp Pulse Resp BP Pulse Ox O2 Del Method 03/17/22 03:35 97.7 F 88 18 106/77 98 Room Air 03/17/22 01:20 18 96 03/17/22 00:05 18 99 03/16/22 23:15 18 97 03/16/22 22:20 18 96 03/17/22 00:05 97.5 F L 88 18 115/77 99 Room Air 03/16/22 21:10 18 96 03/16/22 20:10 18 96 03/16/22 19:40 18 97 03/16/22 19:40 Room Air 03/16/22 19:40 97.9 F 91 H 18 114/69 97 Room Air 03/16/22 18:13 16 99
[2022-03-17 06:27] LABS: Basophils # (auto) 0.03 K/uL (0-0.2); Basophils % (auto) 0.5 %; Eosinophils # (auto) 0.02 K/uL (0-0.50); Eosinophils % (auto) 0.3 %; Hematocrit (blood only) 29.1 % (34.1-44.9); Hemoglobin 9.5 g/dl (12.0-16.0); Immature Granulocytes # (auto) 0.05 K/uL (0.00-0.02); Immature Granulocytes % (auto) 0.8 %; Lymphocytes # (auto) 1.35 K/uL (1.2-3.4); Lymphocytes % (auto) 20.7 %; Mean Corpuscular Hemoglobin 29.4 pg (25.0-34.0); Mean Corpuscular Hgb Conc 32.6 g/dL (32.0-36.0); Mean Corpuscular Volume 90.1 fL (80.0-100.0); Mean Platelet Volume 10.1 fL (9.4-12.3); Monocytes # (auto) 0.62 K/uL (0.24-0.82); Monocytes % (auto) 9.5 %; Neutrophils # (auto) 4.46 K/uL (1.4-6.5); Neutrophils % (auto) 68.2 %; Platelet Count 191 K/uL (130-400); RDW Coefficient of Variation 13.4 % (11.5-14.5); RDW Standard Deviation 44.3 fL (36.4-46.3); Red Blood Count 3.23 M/uL (3.93-5.22); White Blood Count 6.53 K/ul (4.8-10.8)
[2022-03-17] MEDS ORDERED: FERROUS SULFATE 325 MG TAB PO SCH (08:00)
[2022-03-17] MEDS ORDERED: PRENATAL VITAMIN 1 TAB PO SCH (08:00)
[2022-03-17] MEDS: DOCUSATE SODIUM 100 MG CAP PO SCH (08:27)
[2022-03-17] MEDS: SIMETHICONE 80 MG CHEW PO SCH ×2 (08:27→13:15)
--- NOTE | 2022-03-17 12:01 | Obstetrical Progress Note ---
Date of Service March 17, 2022 Assessment & Plan Admission and Anticipated Discharge Date Admission Date: March 16, 2022 Subjective wishes discharge day 1 Results & Data ([facility]) Vital Signs (Past 12 Hours) Vital Signs Temp Pulse Resp BP Pulse Ox O2 Del Method 03/17/22 07:30 99.0 F 78 18 102/67 Room Air 03/17/22 03:35 97.7 F 88 18 106/77 98 Room Air 03/17/22 01:20 18 96 03/17/22 00:05 18 99 03/17/22 00:05 97.5 F L 88 18 115/77 99 Room Air PG Care Time/CCT Total # of Minutes Spent Total Time Spent with Patient: Total time spent is greater than 50% in coordination of care (as documented) at patient's floor/unit and/or counseling patient: Coding Level of Care Code None
[2022-03-17] MEDS ORDERED: bisacodyL 5 MG TABEC PO SCH (20:00)
[2022-03-18] MEDS ORDERED: bisacodyL 10 MG SUPP PR PRN (08:50)
--- NOTE | 2022-03-26 08:47 | Discharge Summary ---
Date of Service March 26, 2022 Admission HPI Per Admitting Provider requests section, 2 prior Admission Exam (Per Admitting) Constitutional WD/WN, vitals as above well developed and well nourished Respiratory normal respiratory effort, lungs clear to auscultation normal respiratory effort Cardiovascular RRR, no murmur, no edema Gastrointestinal (Abdomen) normal bowel sounds, soft, nontender, no hepatosplenomegaly Discharge Data Consultations 03/16/22 05:32 Consult Anesthesiology Stat Procedures Performed Operation Date: 03/16/22 07:30 Actual Procedures p Section (Delivery of Baby Through Abdominal Incision) - Libertad Casanova MD, [facility] [place] Hospital Course (1) care following delivery: Plan stable doing well. am labs not drawn yet. she looks well and asking about d/c day 1. just voided large amount, feels emptied well. small clots. enc her to see how day goes and will let oncoming md know of pt wishes. do not feel comfortable with dc this am. enc ambul, cont monitor voids, cont with regular diet and pain mgmt. await labs, breast/rhpos/ri. D/C in pm Coding Level of Care Code None Diagnoses care following delivery Z39.2
== END 2022-03-17 15:30 | disposition home or self-care (01) | DRG 788 ==
LOC: 4S1 05:43 → EDSTATUS 07:30 → 4E1 12:17
DX: Z3A.39 39 weeks gestation of pregnancy; O34.211 Maternal care for low transverse scar from previous cesarean delivery; Z37.0 Single live birth